=== PATIENT | female | born 1980 | race Hispanic/Latino ===

== ENCOUNTER 2019-07-09 10:02 | Inpatient (IN) | payer SELFPAY ==
[~2019-07-09] VITALS: Ht 162.6 cm; Wt 59.0 kg
[2019-07-09 10:31] LABS: BASOPHILS % (AUTO) 1.1 % (0.0-5.0); EOSINOPHILS % (AUTO) 0.7 % (0.0-8.0); HEMATOCRIT 33.2 % (36-48); LYMPHOCYTES % (AUTO) 15.9 % (21.0-51.0); MEAN CORPUSCULAR HEMOGLOBIN 24.1 pg (27.0-33.0); MEAN CORPUSCULAR VOLUME 72.9 fL (79-99); MONOCYTES % (AUTO) 9.1 % (3.0-13.0); NEUTROPHILS % (AUTO) 73.2 % (40.0-77.0); PLATELET COUNT (AUTO) 522 K/uL (130-400); RED BLOOD CELL COUNT(AUTO) 4.55 MIL/uL (4.00-5.50); RED CELL DISTRIBUTION WIDTH 16.4 % (11.0-15.5)
[2019-07-09 10:40] LABS: CREATININE 0.8 mg/dL (0.5-1.5); POTASSIUM 3.9 mmol/L (3.5-5.1)
[2019-07-09 10:44] LABS: ALBUMIN 2.7 g/dL (3.5-5.0); BILIRUBIN,TOTAL 0.3 mg/dL (0.2-1.0); TOTAL PROTEIN, SERUM 7.6 g/dL (6.0-8.3)
[2019-07-09] MEDS ORDERED: KETOROLAC TROMETHAMINE 30MG/ML ONE (10:47)
[2019-07-09] MEDS ORDERED: IOHEXOL-350 75 ML VIAL IV ONE ×2 (10:57→16:20)
[2019-07-09 11:08] LABS: APPEARANCE,URINE Turbid (CLEAR); BILIRUBIN,URINE Moderate (NEGATIVE); COLOR,URINE Dark Yellow (YELLOW); GLUCOSE, URINE (UA) Negative (NEGATIVE); KETONES,URINE 40 mg/dL (NEGATIVE); LEUKOCYTE ESTERASE ,URINE Trace (NEGATIVE); NITRATE,URINE Negative (NEGATIVE); OCCULT BLOOD,URINE Negative (NEGATIVE); PH,URINE 5.5 (5.0-8.0); PROTEIN,URINE POS 1+ mg/dL (NEGATIVE)
[2019-07-09 11:51] LABS: BACTERIA,URINE Moderate /HPF (None Seen); CALCIUM OXALATE CRYSTALS,UR Many /LPF (None Seen)
[2019-07-09 11:52] LABS: RBC,URINE 0-1 /HPF (0-1)
[2019-07-09] MEDS ORDERED: ACETAMINOPHEN 325 MG TAB PO PRN ×2 (14:15)
[2019-07-09] MEDS ORDERED: IOHEXOL-350 50ML VIAL IV ONE (16:31)
[2019-07-09 17:22] VITALS: BP 106/68
[2019-07-09 18:56] LABS: % IRON SATURATION 4.3 % (22-44)
[2019-07-09 19:28] LABS: INR 1.08 (0.85-1.15); PROTHROMBIN TIME 11.3 SEC (9.6-11.6)
[2019-07-09 19:30] VITALS: BP 95/60
[2019-07-09] MEDS: FAMOTIDINE/PF 20 MG/2 ML VIAL IV SCH (21:24)
[2019-07-09 23:30] VITALS: BP 107/74
[2019-07-10] VITALS (27 sets, daily range): BP systolic 91–127; BP diastolic 51–84
--- NOTE | 2019-07-10 07:00 | NUR ---
TO DAVID. REPORT GIVEN TO ENDO NURSE ON PT, PT GOING DOWN AT THIS TIME FOR EGD WITH MAC WITH . PT AWAKE, ALERT AND RESPONSIVE. FAMILY MEMBER WALKED DOWN WITH PT.
[2019-07-10] MEDS ORDERED: ALBUMIN (HUMAN) 5% 250 ML IV ONE (08:10)
[2019-07-10] MEDS: MORPHINE SULFATE 2 MG/ML 1ML SYG IV PRN (10:03)
[2019-07-10] MEDS: FAMOTIDINE/PF 20 MG/2 ML VIAL IV SCH ×2 (10:06→20:23)
--- NOTE | 2019-07-10 15:30 | NUR ---
U/S GD PARACENTESIS PROCEDURE PERFORMED BY DR Manjit PATINO. PUNCTURE SITE RLQ AND PATIENT TOLERATED PROCEDURE WELL. TOTAL REMOVED 7 LITERS OF BLOOD TINGED FLUID. END OF PROCEDURE AT 1515. CATHETER REMOVED AND DRESSING APPLIED. NO BLEEDING NOTED. REPORT GIVEN TO Jerri JOHNSON RN AND PATIENT TRANSPORTED TO [facility] VIA BED AT 1530. AAO X3 WITH NO C/O PAIN. SPECIMEN SENT TO LAB
--- NOTE | 2019-07-10 16:00 | NUR ---
ATTEMPTED INITIAL TODAY BUT PATIEN OFF FLOOR HAVING HER PARACENTESIS DONE WILL VISIT IN AM Addendum: 07/11/19 at 1631 by MICAELA CLAYTON RN CM Amended: Links added.
[2019-07-10 16:58] LABS: APPEARANCE BODY FLUID CLOUDY (CLEAR); BF LYMPHOCYTE 54 %; BF MESOTHELIAL 23 %; BF MONOCYTE 11 %; SPECIMENTYPE,BODY FLUID ASCITES
[2019-07-10 16:59] LABS: COLOR,BODY FLUID PINK (LT YELLOW)
[2019-07-10 17:00] LABS: BODY FLUID RBC 905 /cu. mm.; BODY FLUID WBC 79 /cu. mm.; TOTAL VOLUME,BODY FLUID 7000 mL
[2019-07-11 03:30] VITALS: BP 98/57
[2019-07-11 04:49] LABS: HEMATOCRIT 29.2 % (36-48); MEAN CORPUSCULAR HGB CONC 32.7 g/dL (32.0-36.0); MEAN CORPUSCULAR VOLUME 73.3 fL (79-99); PLATELET COUNT (AUTO) 379 K/uL (130-400); RED BLOOD CELL COUNT(AUTO) 3.98 MIL/uL (4.00-5.50); RED CELL DISTRIBUTION WIDTH 16.1 % (11.0-15.5); WHITE BLOOD COUNT (AUTO) 4.9 K/uL (4.8-10.8)
[2019-07-11 05:00] LABS: CREATININE 0.8 mg/dL (0.5-1.5); POTASSIUM 4.1 mmol/L (3.5-5.1)
[2019-07-11 08:10] VITALS: BP 100/68
[2019-07-11] MEDS: FAMOTIDINE/PF 20 MG/2 ML VIAL IV SCH ×2 (09:12→20:22)
--- NOTE | 2019-07-11 11:00 | NUR ---
TORRIEMARTA MET W PT- SLEEPING, AND SON AT BEDSIDE- SON IS TWENTY, STUDENT- PATIENT LIVES W TWO SONS, YOUNGEST IS A MINOR, AND HER FATHER. MOTHER IN THE AREA, DISABLED, LIVING IN A HANDICAPPED APARTMENT. PT HAS BEEN SICK ABOUT THREE MONTHS. SON STATED HE AND HIS BROTHER LOOK AFTER THEIR MOM . PATIENT IS EXTREMELY MALNOURISHED AND LETHARGIC AND DOES NOT ROUSE DURING THIS CONVERSATION. CM AWARE OF PROBABLE METASTATIC MALIGNANCY. FAMILY /SON/PT UNAWARE UNTIL CONFIRMED DIAGNOSIS PT WITH OUT ANY DME AT THIS TIME AND IS UNINSURED WHEN PATH BACK WILL NEED TO DECIDE HOSPICE OR PURSUE TREATMENT Addendum: 07/11/19 at 1636 by MICAELA CLAYTON RN CM Amended: Links added.
[2019-07-11 11:02] VITALS: BP 100/60
[2019-07-11] MEDS: MORPHINE SULFATE 2 MG/ML 1ML SYG IV PRN (11:54)
[2019-07-11] MEDS: ONDANSETRON HCL 4 MG/2 ML VIAL IV PRN (11:54)
[2019-07-11 16:50] VITALS: BP 93/58
[2019-07-11 19:40] VITALS: BP 104/60
[2019-07-11 23:30] VITALS: BP 93/53
[2019-07-12 04:29] VITALS: BP 93/57
[2019-07-12 04:57] LABS: HEMATOCRIT 30.8 % (36-48); MEAN CORPUSCULAR HEMOGLOBIN 23.9 pg (27.0-33.0); MEAN CORPUSCULAR HGB CONC 32.4 g/dL (32.0-36.0); MEAN CORPUSCULAR VOLUME 73.6 fL (79-99); NUCLEATED RED BLOOD CELLS 0.1 % (0.0-0.19); PLATELET COUNT (AUTO) 401 K/uL (130-400); RED BLOOD CELL COUNT(AUTO) 4.18 MIL/uL (4.00-5.50); RED CELL DISTRIBUTION WIDTH 16.1 % (11.0-15.5); WHITE BLOOD COUNT (AUTO) 5.3 K/uL (4.8-10.8)
[2019-07-12 05:06] LABS: CREATININE 0.6 mg/dL (0.5-1.5); POTASSIUM 3.3 mmol/L (3.5-5.1)
[2019-07-12 07:53] VITALS: BP 105/67
[2019-07-12] MEDS: FAMOTIDINE/PF 20 MG/2 ML VIAL IV SCH ×3 (09:48→21:25)
[2019-07-12] MEDS: ONDANSETRON HCL 4 MG/2 ML VIAL IV PRN (09:50)
[2019-07-12] MEDS ORDERED: POTASSIUM CHLORIDE 20 MEQ ERTAB PO SCH (10:30)
[2019-07-12] MEDS ORDERED: PROMETHAZINE HCL 25 MG/ML 1ML AMPULE IM PRN (11:45)
[2019-07-12 11:52] VITALS: BP 109/74
[2019-07-12 17:00] VITALS: BP 102/63
--- NOTE | 2019-07-12 17:46 | NUR ---
CHART REVIEWED WILL EXPECT PATIENT TO BE DC'D IN 24-48 HRS, TO HOME, TO FOLLOW UP WITH CANCER TX OR HOSPICE Addendum: 07/12/19 at 1747 by MICAELA CLAYTON RN CM Amended: Links added.
[2019-07-12 19:00] VITALS: BP 101/65
[2019-07-13] VITALS: BP 101/64
[2019-07-13 04:00] VITALS: BP 90/62
[2019-07-13 05:25] LABS: BASOPHILS % (AUTO) 0.6 % (0.0-5.0); EOSINOPHILS % (AUTO) 2.2 % (0.0-8.0); HEMATOCRIT 30.5 % (36-48); LYMPHOCYTES % (AUTO) 21.9 % (21.0-51.0); MEAN CORPUSCULAR HEMOGLOBIN 23.9 pg (27.0-33.0); MEAN CORPUSCULAR HGB CONC 32.9 g/dL (32.0-36.0); MEAN CORPUSCULAR VOLUME 72.6 fL (79-99); MONOCYTES % (AUTO) 12.9 % (3.0-13.0); NEUTROPHILS % (AUTO) 62.4 % (40.0-77.0); PLATELET COUNT (AUTO) 401 K/uL (130-400); RED BLOOD CELL COUNT(AUTO) 4.21 MIL/uL (4.00-5.50); RED CELL DISTRIBUTION WIDTH 15.8 % (11.0-15.5); WHITE BLOOD COUNT (AUTO) 4.7 K/uL (4.8-10.8)
[2019-07-13 05:31] LABS: CREATININE 0.6 mg/dL (0.5-1.5); MAGNESIUM 1.7 mg/dL (1.80-2.40); POTASSIUM 3.6 mmol/L (3.5-5.1)
[2019-07-13] MEDS ORDERED: MAGNESIUM 2GM PREMIX 50ML 50 ML IV SCH (07:45)
[2019-07-13 08:00] VITALS: BP 92/61
[2019-07-13] MEDS ORDERED: COMPOUND IV MISC 1 EACH IVSOLN MISC PRN (08:30)
[2019-07-13] MEDS: METRONIDAZOLE 500 MG TABLET PO SCH ×2 (09:48→16:49)
[2019-07-13] MEDS: POTASSIUM CHLORIDE 20 MEQ ERTAB PO SCH (09:49)
[2019-07-13] MEDS: IRON SUCROSE COMPLEX 100 MG in SODIUM CHLORIDE 0.9% 50 ML IV SCH (10:04)
--- NOTE | 2019-07-13 11:15 | NUR ---
s/p paracentesis PATIENT RETURNED FROM PARACENTESIS WHERE IR REMOVED 2.5 LITERS OF FLUID, FLUID SET OUT FOR LABWORK TESTING PER DR. BEAR. AAOX3 AND NO PAIN AT THE MOMENT, WILL MONITOR PT CLOSELY.
--- NOTE | 2019-07-13 11:15 | NUR ---
U/S GD PARACENTESIS PROCEDURE PERFORMED BY DR Manjit PATINO. PUNCTURE SITE RLQ AND PATIENT TOLERATED PROCEDURE WELL. TOTAL REMOVED 2.5 LITERS OF BLOOD TINGED FLUID. END OF PROCEDURE AT 1100. CATHETER REMOVED AND DRESSING APPLIED. NO BLEEDING NOTED. REPORT GIVEN TO Jerri TSE RN AND PATIENT TRANSPORTED TO [facility] VIA BED AT 1115. AAO X3 WITH NO C/O PAIN. SPECIMEN SENT TO LAB.
[2019-07-13 12:00] VITALS: BP 92/47
--- NOTE | 2019-07-13 14:16 | NUR ---
RD NOTIFICATION Primary Diagnosis: Abdominal pain, Abnormal CT, Ascites. Hx: Anemia. BMI is 22.3; classified as normal. Current diet: Clear Liquids. LBM: 07/12. Skin is intact, non-pitting edema present on lower extremities, ascites present. Meds: Phenergan, Pepcid, Flagyl, Iron sucrose. Labs: WBC 4.7, Mg 1.70, Iron 11, Na 135, CA 10-9 Antigen 147, ALB 2.7, CA 125 Antigen 50. PO intake 25% and has no appetite as per pt. Pt states she has nausea, vomiting and diarrhea. Pt came from paracentesis this morning removing 2.7L as per nurse. Pt UBW is 180# as of 1 year ago and now weighs 130# as per pt. Pt has had 27% weight loss in one year resulting in severe protein calorie malnutrition. RD recommends to continue current diet and advance diet as tolerated. RD spoke to RN, RN gave okay to Offer Ensure at all meals. RD will continue to monitor and follow up as needed. Please notify RD if any other nutritional concerns arise. Thank you. Addendum: 07/13/19 at [address] Amended: Links added.
[2019-07-13 16:00] VITALS: BP 95/65
[2019-07-13 20:00] VITALS: BP 98/62
[2019-07-14] VITALS (12 sets, daily range): BP systolic 85–109; BP diastolic 57–84
[2019-07-14] MEDS: METRONIDAZOLE 500 MG TABLET PO SCH ×4 (01:34→23:45)
[2019-07-14 05:23] LABS: BASOPHILS % (AUTO) 0.6 % (0.0-5.0); EOSINOPHILS % (AUTO) 1.6 % (0.0-8.0); HEMATOCRIT 31.3 % (36-48); LYMPHOCYTES % (AUTO) 20.5 % (21.0-51.0); MEAN CORPUSCULAR HGB CONC 32.8 g/dL (32.0-36.0); MONOCYTES % (AUTO) 12.9 % (3.0-13.0); NEUTROPHILS % (AUTO) 64.4 % (40.0-77.0); PLATELET COUNT (AUTO) 391 K/uL (130-400); RED BLOOD CELL COUNT(AUTO) 4.28 MIL/uL (4.00-5.50); RED CELL DISTRIBUTION WIDTH 16.1 % (11.0-15.5); WHITE BLOOD COUNT (AUTO) 5.4 K/uL (4.8-10.8)
[2019-07-14 05:43] LABS: ALBUMIN 1.7 g/dL (3.5-5.0); CREATININE 0.7 mg/dL (0.5-1.5); MAGNESIUM 2.2 mg/dL (1.80-2.40); PHOSPHORUS 3.1 mg/dL (2.5-4.9); POTASSIUM 4.1 mmol/L (3.5-5.1)
[2019-07-14] MEDS: POTASSIUM CHLORIDE 20 MEQ ERTAB PO SCH (07:45)
[2019-07-14] MEDS ORDERED: DIATR MEGLU/DIATRIZOATE SODIUM 30 ML BOTTLE ONE (07:57)
--- NOTE | 2019-07-14 10:18 | NUR ---
DR XAVIER ROUNDED ON PATIENT WAITING FOR CT TO TO DONE , PLANNING PEG TUBE PLACEMENT WEDNESDAY OR WEDNESDAY
[2019-07-14] MEDS ORDERED: IOHEXOL-350 75 ML VIAL IV ONE (12:09)
[2019-07-14] MEDS ORDERED: MIDAZOLAM HCL 1 MG/ML 2ML VIAL ONE (14:53)
[2019-07-14] MEDS ORDERED: LIDOCAINE HCL/EPINEPHRINE 50 ML VIAL IJ ONE (14:53)
[2019-07-14] MEDS ORDERED: FENTANYL CITRATE PF 50 MCG/1 ML 2ML VIAL ONE (14:53)
[2019-07-14] MEDS ORDERED: LIDOCAINE HCL 1% MDV 50ML VIAL ONE (14:54)
[2019-07-14] MEDS ORDERED: BUPIVACAINE/PF 0.25% 50ML VIAL IJ ONE (14:54)
[2019-07-14] MEDS ORDERED: LIDOCAINE HCL 1% 20 ML VIAL ONE (14:54)
[2019-07-14] MEDS ORDERED: OCTYL 2-CYANOACRYLATE 1 EACH TP ONE (16:17)
--- NOTE | 2019-07-14 16:47 | NUR ---
REPORT CALLED PATIENT S/P PORTACATH RT UPPER CHEST PLACEMENT A&O X 3 P68 , B/P 108/64 O2 SATS 98% ON ROOM AIR DENIES PAIN AT THIS TIME WILL CONTINUE TO MONITOR
[2019-07-14] MEDS: IRON SUCROSE COMPLEX 100 MG in SODIUM CHLORIDE 0.9% 50 ML IV SCH (19:05)
[2019-07-15] VITALS (7 sets, daily range): BP systolic 93–110; BP diastolic 57–71
[2019-07-15] MEDS: METRONIDAZOLE 500 MG TABLET PO SCH ×4 (00:05→23:12)
[2019-07-15] MEDS: POTASSIUM CHLORIDE 20 MEQ ERTAB PO SCH (07:45)
--- NOTE | 2019-07-15 08:00 | NUR ---
sx paged returned. spoke with Dr. Morgan regarding request for J-tube placement. as per conversation, tube will be able to be placed on Wednesday (26) or Wednesday (27). will continue to await further orders. as per Dr. See, not ready for discharge homecurrently on clear liquid diet
[2019-07-15] MEDS: IRON SUCROSE COMPLEX 100 MG in SODIUM CHLORIDE 0.9% 50 ML IV SCH (09:25)
--- NOTE | 2019-07-15 12:52 | NUR ---
received order to access Port-A-Cath current dressing removed via aseptic technique. pt tolerated well. hands washed, donned sterile gloves. port then cleaned via sterile technique and accessed with no issues. sterile dressing applied. blood return aspirated, flushed with 10cc NS. pt tolerated procedure well. port extension then connected to NS to run as ordered. will cont to monitor
[2019-07-15] MEDS ORDERED: ONDANSETRON HCL 4 MG/2 ML VIAL IVP PRN (13:15)
[2019-07-16 03:30] VITALS: BP 103/66
[2019-07-16 05:38] LABS: MEAN CORPUSCULAR HEMOGLOBIN 23.4 pg (27.0-33.0); MEAN CORPUSCULAR HGB CONC 31.8 g/dL (32.0-36.0); MEAN CORPUSCULAR VOLUME 73.4 fL (79-99); NUCLEATED RED BLOOD CELLS 0.1 % (0.0-0.19); PLATELET COUNT (AUTO) 400 K/uL (130-400); RED BLOOD CELL COUNT(AUTO) 4.49 MIL/uL (4.00-5.50); RED CELL DISTRIBUTION WIDTH 16.3 % (11.0-15.5); WHITE BLOOD COUNT (AUTO) 5.7 K/uL (4.8-10.8)
[2019-07-16 05:50] LABS: CREATININE 0.7 mg/dL (0.5-1.5); POTASSIUM 4.4 mmol/L (3.5-5.1)
[2019-07-16] MEDS: POTASSIUM CHLORIDE 20 MEQ ERTAB PO SCH (07:45)
[2019-07-16 08:00] VITALS: BP 104/59
[2019-07-16] MEDS: METRONIDAZOLE 500 MG TABLET PO SCH ×3 (09:15→23:17)
[2019-07-16] MEDS: IRON SUCROSE COMPLEX 100 MG in SODIUM CHLORIDE 0.9% 50 ML IV SCH (09:18)
[2019-07-16 12:04] VITALS: BP 98/65
[2019-07-16 16:00] VITALS: BP 98/74
[2019-07-16 19:46] VITALS: BP 102/63
--- NOTE | 2019-07-16 21:25 | NUR ---
ASSESS SHIFT ASSESSMENT DONE, PLEASE REFER TO CHART. PT VERBALIZES THAT FULL LIQUIDS ARE ABLE TO TOLERATE BUT NEEDED CRACKERS TO EAT. CLAIMS ENSURE CLEAR MAKES HER GAG. WILL GET FINANCIAL REPORT SERVICE SALES AGENT TO EVALUATE PT FOR DIETARY RECOMMENDATIONS. KEPT RESTED IN BED. CALL LIGHT WITHIN REACH. WILL MONITOR PT. FAMILY AT BEDSIDE. Addendum: 07/16/19 at 2152 by NACHO CASTANEDA RN RN Amended: Links added.
[2019-07-16 23:37] VITALS: BP 101/70
--- NOTE | 2019-07-17 02:00 | NUR ---
ROUNDS PT RESTING WELL, NO DISTRESS NOTED. NO CONCERNS VERBALIZED. KEPT RESTED AND COMFORTABLE. WILL MONITOR PT.
[2019-07-17 03:30] VITALS: BP 103/71
[2019-07-17 05:08] LABS: MEAN CORPUSCULAR HEMOGLOBIN 23.7 pg (27.0-33.0); MEAN CORPUSCULAR HGB CONC 32.7 g/dL (32.0-36.0); MEAN CORPUSCULAR VOLUME 72.5 fL (79-99); PLATELET COUNT (AUTO) 434 K/uL (130-400); RED BLOOD CELL COUNT(AUTO) 4.69 MIL/uL (4.00-5.50); RED CELL DISTRIBUTION WIDTH 15.8 % (11.0-15.5); WHITE BLOOD COUNT (AUTO) 5.5 K/uL (4.8-10.8)
[2019-07-17 05:19] LABS: CREATININE 0.6 mg/dL (0.5-1.5)
--- NOTE | 2019-07-17 05:20 | NUR ---
ROUNDS PT SLEPT AT INTERVALS. NO DISTRESS NOTED. KEPT RESTED AND COMFORTABLE. CALL LIGHT WITHIN REACH. FOR MORE CARE.
[2019-07-17] MEDS: METRONIDAZOLE 500 MG TABLET PO SCH ×3 (06:18→23:33)
[2019-07-17 08:00] VITALS: BP 95/75
[2019-07-17] MEDS: IRON SUCROSE COMPLEX 100 MG in SODIUM CHLORIDE 0.9% 50 ML IV SCH (11:00)
[2019-07-17 12:00] VITALS: BP 99/69
--- NOTE | 2019-07-17 12:37 | NUR ---
JOSE TO DOG DAY CARE ATTENDANT AOBUT J TUBE ADVISED SAGE THAT WE WILL BE ABLE TO MAKE APPLICATION TO [facility] FOR [facility]ARY TUBE FEEDING. .. NEED TO KNOW THE FINAL RECOMMENDATIONS FOR TUBE FEEDING. WILL NOT BE ABLE TO SEND THE APPLICATION UNTIL THE J TUBE OR PEG IS PLACED. WILL FOLLOW UP
--- NOTE | 2019-07-17 12:39 | NUR ---
SPOKE TO COMPACTING MACHINE OPERATOR/TENDER RE POSSIBLE ENTERAL FEEDING ADVISED SAGE COMPACTING MACHINE OPERATOR/TENDER THAT WE WILL BE ABLE TO MAKE APPLICATION TO [facility] FOR MARY TUBE FEEDING. .. CM WILL NEED TO KNOW THE FINAL RECOMMENDATIONS FOR TUBE FEEDING AND WILL NOT BE ABLE TO SEND THE APPLICATION UNTIL THE J TUBE OR PEG IS PLACED.
[2019-07-17 16:00] VITALS: BP 103/58
--- NOTE | 2019-07-17 16:01 | NUR ---
RD Follow Up Note Pt with Stage IV Gastric CA. Pt reports decreased appetite x1mo, Recommend appetite stimulant as medically feasible. Pt with no GI distress. Rec to modify diet to GI Soft [place], as per Pt request. Rec to add Ensure TID, 60mL ProMod BID for improved nutritional intake. Calorie Count initiated 07/17/19, Dinner Meal. Pt LBM 07/16/19. Pt monitored labs: Ca 8.3, Alb 1.7. RD to continue to monitor. Please notify RD as additional nutrition concerns arise. Thank you. Addendum: 07/17/19 at [address] Amended: Links added.
[2019-07-17 20:13] VITALS: BP 91/62
[2019-07-17 23:45] VITALS: BP 92/58
[2019-07-18 04:03] VITALS: BP 100/69
[2019-07-18 05:23] LABS: BASOPHILS % (AUTO) 0.7 % (0.0-5.0); EOSINOPHILS % (AUTO) 0.9 % (0.0-8.0); HEMATOCRIT 34.4 % (36-48); LYMPHOCYTES % (AUTO) 20.3 % (21.0-51.0); MEAN CORPUSCULAR HEMOGLOBIN 23.6 pg (27.0-33.0); MEAN CORPUSCULAR HGB CONC 32.1 g/dL (32.0-36.0); MEAN CORPUSCULAR VOLUME 73.4 fL (79-99); MONOCYTES % (AUTO) 11.8 % (3.0-13.0); NEUTROPHILS % (AUTO) 66.3 % (40.0-77.0); NUCLEATED RED BLOOD CELLS 0.1 % (0.0-0.19); PLATELET COUNT (AUTO) 402 K/uL (130-400); RED BLOOD CELL COUNT(AUTO) 4.68 MIL/uL (4.00-5.50); RED CELL DISTRIBUTION WIDTH 16.5 % (11.0-15.5); WHITE BLOOD COUNT (AUTO) 6.8 K/uL (4.8-10.8)
[2019-07-18 05:29] LABS: CREATININE 0.5 mg/dL (0.5-1.5); POTASSIUM 4.1 mmol/L (3.5-5.1)
[2019-07-18 07:30] VITALS: BP 98/70
[2019-07-18] MEDS: METRONIDAZOLE 500 MG TABLET PO SCH ×2 (07:45→11:08)
[2019-07-18 11:00] VITALS: BP 97/65
[2019-07-18] MEDS: IRON SUCROSE COMPLEX 100 MG in SODIUM CHLORIDE 0.9% 50 ML IV SCH (11:08)
[2019-07-18] MEDS ORDERED: HEPARIN SODIUM/PF 100UNIT/ML 5ML SYRINGE IV SCH (13:30)
[2019-07-18] MEDS ORDERED: MEGESTROL 400 MG/10 ML UDCUP PO SCH (14:30)
--- NOTE | 2019-07-18 15:34 | NUR ---
U/S GD PARACENTESIS PROCEDURE PERFORMED BY DR Wallace TRIMBLE. PUNCTURE SITE RLQ AND PATIENT TOLERATED PROCEDURE WELL. TOTAL REMOVED 2.7 LITERS OF BLOOD TINGED FLUID. END OF PROCEDURE AT 1530. CATHETER REMOVED AND DRESSING APPLIED. NO BLEEDING NOTED. REPORT GIVEN TO Lurdes SCHMITT RN AND PATIENT TRANSPORTED TO [facility] VIA BED AT 1535. AAO X3 WITH NO C/O PAIN.
[2019-07-18 16:00] VITALS: BP 96/64
[2019-07-18] MEDS: MIDODRINE HCL 5 MG TABLET PO SCH (20:05)
[2019-07-18 21:40] VITALS: BP 90/65
[2019-07-18 23:45] VITALS: BP 95/61
[2019-07-19 03:51] VITALS: BP 95/65
[2019-07-19 05:37] LABS: MEAN CORPUSCULAR HEMOGLOBIN 23.8 pg (27.0-33.0); MEAN CORPUSCULAR HGB CONC 32.4 g/dL (32.0-36.0); MEAN CORPUSCULAR VOLUME 73.6 fL (79-99); PLATELET COUNT (AUTO) 407 K/uL (130-400); RED BLOOD CELL COUNT(AUTO) 4.62 MIL/uL (4.00-5.50); RED CELL DISTRIBUTION WIDTH 16.6 % (11.0-15.5); WHITE BLOOD COUNT (AUTO) 6.4 K/uL (4.8-10.8)
[2019-07-19 05:47] LABS: CREATININE 0.6 mg/dL (0.5-1.5); POTASSIUM 4.1 mmol/L (3.5-5.1)
[2019-07-19 08:02] VITALS: BP 100/61
[2019-07-19] MEDS ORDERED: MEGESTROL 400 MG/10 ML UDCUP PO SCH (09:00)
[2019-07-19] MEDS: IRON SUCROSE COMPLEX 100 MG in SODIUM CHLORIDE 0.9% 50 ML IV SCH (09:56)
[2019-07-19] MEDS: MIDODRINE HCL 5 MG TABLET PO SCH ×2 (09:57→14:00)
[2019-07-19 11:36] VITALS: BP 100/62
--- NOTE | 2019-07-19 14:11 | NUR ---
DISCHARGE INSTRUCTIONS DISCHARGE WERE GIVEN TO PATIENT, VERBALIZED UNDERSTANDING. INSTRUCTED TO FOLLOW UP WITH DR BEAR 07/20/19 AT 1035, FOLLOW UP WITH PRIMARY CARE PROVIDER IN 2-3 DAYS. [place] AFTERCARE INSTRUCTIONS GIVEN TO PATIENT. DEACCESSED [place] AND HEPLOCKED. NO NEW PRESCRIPTIONS GIVEN.
--- NOTE | 2019-07-19 14:17 | NUR ---
RD Follow Up Note Pt continues with Poor PO intake (25%) with refusal to appetite stimulant as per RN. RD obtained food preferences. Pt likes sweet potato, Oatmeal, banana, nuts, eggs with butter, non-creamy soups, fruit, whole grain bread and peanut butter. Pt will eat vegetables, avoids dairy, gravies, sauces, pepper. Pt also did not want crackers on tray. Pt with Calorie Count in place (Total Nutrition X1day = 328Kcal/18gm Pro/34gmCHO). Pt PO intake not meeting nutritional needs. Pt very selective with foods. Pt did request Peanut butter and fruit as snack this afternoon. Pt to be discharged as per RN. Monitored labs: Na 135, Cl 100, Ca 8.1. Pt LBM 07/17/19. Pt BMI 22.3. Pt with Metastatic Gastric CA stg. IV. RD to continue to monitor. Please notify RD as additional nutrition concerns arise. Thank you. Addendum: 07/19/19 at [address] RD Amended: Links added.
== END 2019-07-19 14:50 | disposition home or self-care (01) | DRG 982 ==
LOC: EDH 10:02 → EDHIP 10:03 → 4AH 16:47 → 3DH 07-13 13:56
PROVIDERS: ADMIT Family Medicine; ATTEND Family Medicine
PROC: 0DB68ZX Excision of Stomach, Via Natural or Artificial Opening Endoscopic, Diagnostic (ICD-10-PCS; principal; 2019-07-10)
PROC: 0DB78ZX Excision of Stomach, Pylorus, Via Natural or Artificial Opening Endoscopic, Diagnostic (ICD-10-PCS; 2019-07-10)
PROC: 0W9G3ZZ Drainage of Peritoneal Cavity, Percutaneous Approach (ICD-10-PCS; 2019-07-10)
PROC: 0W9G3ZZ Drainage of Peritoneal Cavity, Percutaneous Approach (ICD-10-PCS; 2019-07-13)
PROC: 0JH60WZ Insertion of Totally Implantable Vascular Access Device into Chest Subcutaneous Tissue and Fascia, Open Approach (ICD-10-PCS; 2019-07-14)
PROC: 02H633Z Insertion of Infusion Device into Right Atrium, Percutaneous Approach (ICD-10-PCS; 2019-07-14)
PROC: 0W9G3ZZ Drainage of Peritoneal Cavity, Percutaneous Approach (ICD-10-PCS; 2019-07-18)
DX: C16.9 Malignant neoplasm of stomach, unspecified (principal); C78.6 Secondary malignant neoplasm of retroperitoneum and peritoneum; R64 Cachexia; E44.0 Moderate protein-calorie malnutrition; R18.0 Malignant ascites; K29.70 Gastritis, unspecified, without bleeding; K31.89 Other diseases of stomach and duodenum; R93.3 Abnormal findings on diagnostic imaging of other parts of digestive tract; I95.9 Hypotension, unspecified; R00.0 Tachycardia, unspecified; J43.9 Emphysema, unspecified; D50.9 Iron deficiency anemia, unspecified; Z68.22 Body mass index [BMI] 22.0-22.9, adult; Z79.899 Other long term (current) drug therapy; Z83.6 Family history of other diseases of the respiratory system; Z83.3 Family history of diabetes mellitus; Z80.41 Family history of malignant neoplasm of ovary; Z82.49 Family history of ischemic heart disease and other diseases of the circulatory system
CPT/HCPCS: 36415; 36561; 43239; 49083; 71270; 74170; 74177; 76830; 76856; 77001; 80048; 80053; 81001; 82040; 82105; 82140; 82150; 82378; 82677; 82948; 83540; 83550; 83690; 83735; 84100; 84702; 85025; 85027; 85610; 86304; 86316; 86336; 87071; 87205; 87324; 88108; 88305; 89051; G0378; J1642; J1644; J1756; J1885; J2250; J2405; J2550; J3010; J3475; J3490; P9045; Q9963; Q9967